=== PATIENT | male | born 1975 | race African-American/Black ===

== ENCOUNTER 2017-04-15 18:17 | Inpatient (IN) | payer OTHER ==
[~2017-04-15] VITALS: Ht 177.8 cm; Wt 102.5 kg
--- NOTE | ~2017-04-15 | HP ---
History And Physical [id number] [place]. [address] NAME: DORIAN ROMERO : 71 STATUS : ADM IN [facility]#: [id number] AGE: 41 ADM/REG DATE : 04/15/17 MR#: [id number] REPORT SERV DATE: 04/16/17 DICTATED BY: GISELL GRIGSBY DATE: 04/15/17 REPORT STATUS : Draft TRANSCRIBED BY: MODUmer DATE: 04/15/17 DATE OF ADMISSION: 04/15/2017 The patient has no primary care physician. CHIEF COMPLAINT: Abdominal pain. HISTORY OF PRESENT ILLNESS: A 41-year-old black male, comes in complaining of 1-day history of severe abdominal pain. Abdominal pain is mostly mid epigastric, associated with nausea and vomiting. The patient has not seen an MD for many years, but suspects he has hypertension. He drinks 1-1/[address] in our emergency room revealed acute pancreatitis. PAST MEDICAL HISTORY: None documented. PAST SURGICAL HISTORY: None. SOCIAL HISTORY: Smokes three to four cigars daily. Works as a [employer]. Drinks 1- 1/2 pints of alcohol daily. Denies illicit drug use. ALLERGIES: HAS NO KNOWN DRUG ALLERGIES. MEDICATIONS: None. REVIEW OF SYSTEMS: CONSTITUTIONAL: No fever, sweats, or rigors. EYES: No blurred or double, vision loss, or glaucoma. HEENT: No headache, hearing loss, or tinnitus. CARDIOVASCULAR: No chest pain, palpitations, or syncope. RESPIRATORY: No cough, wheezing, or pleuritic pain. GASTROINTESTINAL: He has had nausea, vomiting. No hematemesis. He has had abdominal pain. No melena, hematochezia, diarrhea, or constipation. MUSCULOSKELETAL: No arthralgia, arthritis. INTEGUMENT: No rash or suspicious skin lesions. NEUROLOGIC: No memory loss, gait disturbance, or weakness. HEMATOLOGIC: No known anemia, iron deficiency, or B12 deficiency. PSYCHIATRIC: No depression, bipolar, or anxiety. : No dysuria, hematuria, or nephrolithiasis. ENDOCRINE: No known diabetes, thyroid disease, or increased cholesterol. PHYSICAL EXAMINATION: VITAL SIGNS: Blood pressure is 200/100, pulse is 118, respirations 16, temp 97.9, and O2 saturation is 98% on room air. CONSTITUTIONAL: Alert and appropriate. PSYCHIATRIC: Oriented x3. Memory intact. Affect appropriate. HEENT: Atraumatic, normocephalic. Oral palate without lesion. History And Physical [address] [address] NAME: DORIAN ROMERO : 71 STATUS : ADM IN PAT#: [id number] AGE: 41 ADM/REG DATE : 04/15/17 MR#: [id number] REPORT SERV DATE: 04/16/17 DICTATED BY: GISELL GRIGSBY DATE: 04/15/17 REPORT STATUS : Draft TRANSCRIBED BY: BAILEE DATE: 04/15/17 EYES: Pupils reactive, anicteric. Conjunctivae clear. NECK: No adenopathy. Supple. No thyromegaly or masses. RESPIRATORY: Clear to percussion and auscultation. No chest wall tenderness. CARDIOVASCULAR: Tachycardic, but regular. No audible murmurs. No carotid or femoral bruits. Distal pulse intact. ABDOMEN: Moderately distended, moderate diffuse, tenderness to palpation, worse in the mid epigastric region. Bowel sounds present. He does have some guarding. SKIN: No rash. No suspicious lesions. NEUROLOGIC: The patient moves all four extremities. Cranial nerves 2 through 12 intact. Deep tendon reflexes are symmetric. LYMPHATIC: No adenopathy in the neck, axilla, or femoral region. MUSCULOSKELETAL: Range of motion intact in upper and lower extremities. DATA: CT scan showed evidence of acute pancreatitis. There is no necrosis. He also has CBC. Sodium 133, potassium 3.8, BUN 12, creatinine 1.22, total bilirubin 1.5, glucose 175, AST 89, lipase 655, troponin 0.06. CBC: White blood cell count 17.8, hemoglobin 16.6, and platelets 239. IMPRESSION/PLAN: 1. Acute pancreatitis. We will give patient IV fluids and pain control. We will hold off on IV antibiotics. His white blood cell count may be elevated secondary to dehydration. 2. Hypertensive urgency, could be secondary to pain, but we will use Catapres patch and nitroglycerin patch for now as the patient cannot tolerate p.o. very well. 3. Mildly elevated troponin likely secondary to hypertensive urgency, do not plan to repeat this. 4. Morbid obesity. 5. Alcohol abuse. We will watch for signs of withdrawal. 6. Morbid obesity. NGM/MODL Gisell Grigsby MD / [id number] CC: Michael Valdes MD
--- NOTE | ~2017-04-15 | DS ---
Discharge Summary [facility] [address] [place]. [address] NAME: DORIAN ROMERO : 71 STATUS : DIS IN PAT#: [id number] AGE: 41 ADM/REG DATE : 04/15/17 MR#: [id number] REPORT SERV DATE: 04/17/17 DICTATED BY: MICHAEL ALBERTO DATE: 04/17/17 REPORT STATUS : Draft TRANSCRIBED BY: MODUmer DATE: 04/17/17 ADMISSION DATE: 04/15/2017 DISCHARGE DATE: 04/17/2017 DISCHARGE DIAGNOSES: 1. Acute alcoholic pancreatitis. 2. Alcohol abuse. 3. Tobacco abuse. 4. Hypertension. 5. Tachycardia. PROCEDURES: None. CONSULTS: None. HOSPITAL COURSE: This is a 41-year-old gentleman who was admitted to the hospital with initial complaint of acute pancreatitis. For details, please refer to excellent H and P dictated by Dr. Gisell Lacey. In summary, the patient was admitted and was given supportive care with IV fluid resuscitation as well as analgesia and nausea control. By the second day of the hospital stay, the patient's lipase has actually normalized, but the patient was still complaining of significant epigastric abdominal discomfort. The patient was also unable to tolerate p.o. The patient was monitored another day, and by the third day of the hospital stay, the patient was able to take in p.o. intake. Of note, the patient was still noted to be slightly tachycardic and hypertensive, and thus, he was started on Lopressor. Also, the patient was given extensive counseling regarding alcohol and tobacco cessation. The patient is now being discharged home with close outpatient followup plans. DISPOSITION: Home. DISCHARGE MEDICATIONS: 1. Percocet 5/325 one tablet p.o. q.6 hours p.r.n., 15 tablets given. 2. Zofran 4 mg to 8 mg p.o. q.6 hours p.r.n. 3. Lopressor 50 mg p.o. b.i.d. FOLLOWUP: Please follow up with PCP in the next one to two weeks. Total of 25 minutes spent in coordinating this patient's discharge today. LUBNA/BAILEE Michael Alberto MD / [id number] Discharge Summary [place] [address] [place] [address] NAME: DORIAN ROMERO : 71 STATUS : DIS IN PAT#: [id number] AGE: 41 ADM/REG DATE : 04/15/17 MR#: [id number] REPORT SERV DATE: 04/17/17 DICTATED BY: MICHAEL ALBERTO DATE: 04/17/17 REPORT STATUS : Draft TRANSCRIBED BY: MODL DATE: 04/17/17 CC: Michael Alberto MD
[2017-04-15 21:01] LABS: BASOPHILS 0.1 %; BASOPHILS ABSOLUTE 0.02 10/3/uL (0.0-0.16); EOSINOPHILS 0 %; ER CBC TAT 0 Hrs 05 Mins; HEMATOCRIT 47.5 % (40.0-51.0); HEMOGLOBIN 16.6 g/dL (13.6-17.8); IMMATURE GRANULOCYTES 0.4 %; IMMATURE GRANULOCYTES ABSOLUTE 0.08 10/3/uL (0.0-0.11); LYMPHOCYTES 3.7 %; LYMPHOCYTES ABSOLUTE 0.66 10/3/uL (0.67-4.30); MANUAL DIFF NO %; MEAN CORPUS HGB CONC 34.9 g/dL (32.0-36.0); MEAN CORPUSCULAR HEMOGLOB 30.3 pg (26.0-34.0); MEAN CORPUSCULAR VOLUME 86.7 fL (80-100); MONOCYTES 6.1 %; MONOCYTES ABSOLUTE 1.08 10/3/uL (0.21-1.20); NEUTROPHILS 89.7 %; PLATELET COUNT 239 10/3/uL (150-400); RBC DISTRIBUTION WIDTH 13.7 % (12.0-16.0); RED CELL COUNT 5.48 10/6/uL (4.7-6.1); WHITE BLOOD CELLS 17.8 10/3/uL (4.5-10.5)
[2017-04-15 21:21] LABS: A/G RATIO 0.9 (0.7-1.9); ALBUMIN 3.7 G/DL (3.5-5.0); ALKALINE PHOSPHATASE 70 U/L (45-117); BUN (BLOOD UREA NITROGEN) 12 MG/DL (6-23); CALCIUM, SERUM 9.2 MG/DL (8.5-10.4); CHLORIDE, SERUM 95 MMOL/L (96-112); CO2 (CARBON DIOXIDE) 23 MMOL/L (24-34); CREATININE 1.22 MG/DL (0.70-1.30); GFR AFRICAN AMERICAN 84 ML/MIN (>=60); GFR NON AFRICAN AMERICAN 72 ML/MIN (>=60); GLOBULIN 3.9 G/DL (2.5-4.1); GLUCOSE, SERUM 175 MG/DL (60-99); SODIUM, SERUM 133 MMOL/L (135-148); TOTAL BILIRUBIN 1.5 MG/DL (0-1.2); TOTAL PROTEIN 7.6 G/DL (6.0-8.5)
[2017-04-15 21:22] LABS: POTASSIUM, SERUM 3.8 MMOL/L (3.5-5.3)
[2017-04-15 21:23] LABS: SGOT(AST) 89 U/L (5-40); SGPT(ALT) 52 U/L (5-65)
[2017-04-15 22:17] LABS: TROPONIN I 0.06 NG/ML (<0.05)
[2017-04-16 00:59] LABS: ALCOHOL < 10 MG/DL (0)
[2017-04-16 03:23] LABS: ASCORBIC ACID (UR NOT ORDER) NEG (NEG); BILIRUBIN, URINE SMALL (NEG); KETONE, URINE TRACE MG/DL (NEG); LEUKOCYTE ESTERASE(NOT OR NEG (NEG); WBC (NOT ORDERED) (RFLEX) 1 (0-5)
[2017-04-16 03:40] LABS: AMPHETAMINES (NOT ORD) NEG (NEG); BARBITURATES (NOT ORDERED NEG (NEG); BENZODIAZEPINES (NOT ORD) NEG (NEG); CANNABINOIDS (THC) NEG (NEG); COCAINE (NOT ORDERED) NEG (NEG); OPIATES POS (NEG); PHENCYCLIDINE(PCP) NEG (NEG); TRICYCLICS NEG (NEG)
[2017-04-16 05:16] LABS: BASOPHILS 0.1 %; BASOPHILS ABSOLUTE 0.01 10/3/uL (0.0-0.16); EOSINOPHILS 0 %; HEMATOCRIT 45.1 % (40.0-51.0); HEMOGLOBIN 15.7 g/dL (13.6-17.8); IMMATURE GRANULOCYTES 0.3 %; IMMATURE GRANULOCYTES ABSOLUTE 0.06 10/3/uL (0.0-0.11); LYMPHOCYTES 3.6 %; LYMPHOCYTES ABSOLUTE 0.64 10/3/uL (0.67-4.30); MANUAL DIFF NO %; MEAN CORPUS HGB CONC 34.8 g/dL (32.0-36.0); MEAN CORPUSCULAR VOLUME 86.2 fL (80-100); MEAN PLATELET VOLUME 10.4 fL (9.2-13.0); MONOCYTES 4.8 %; MONOCYTES ABSOLUTE 0.84 10/3/uL (0.21-1.20); NEUTROPHILS 91.2 %; NEUTROPHILS ABSOLUTE 16.06 10/3/uL (2.02-8.40); NUCLEATED RED BLOOD CELLS 0.6 /100WBC (0-0); PLATELET COUNT 223 10/3/uL (150-400); RBC DISTRIBUTION WIDTH 14.1 % (12.0-16.0); RED CELL COUNT 5.23 10/6/uL (4.7-6.1); WHITE BLOOD CELLS 17.6 10/3/uL (4.5-10.5)
[2017-04-16 05:19] LABS: A/G RATIO 0.9 (0.7-1.9); ALBUMIN 3.2 G/DL (3.5-5.0); ALKALINE PHOSPHATASE 64 U/L (45-117); BUN (BLOOD UREA NITROGEN) 11 MG/DL (6-23); CALCIUM, SERUM 8.7 MG/DL (8.5-10.4); CHLORIDE, SERUM 100 MMOL/L (96-112); CO2 (CARBON DIOXIDE) 22 MMOL/L (24-34); CREATININE 1.11 MG/DL (0.70-1.30); GFR AFRICAN AMERICAN 94 ML/MIN (>=60); GFR NON AFRICAN AMERICAN 81 ML/MIN (>=60); GLOBULIN 3.7 G/DL (2.5-4.1); GLUCOSE, SERUM 156 MG/DL (60-99); POTASSIUM, SERUM 3.9 MMOL/L (3.5-5.3); SGOT(AST) 56 U/L (5-40); SGPT(ALT) 38 U/L (5-65); SODIUM, SERUM 134 MMOL/L (135-148); TOTAL BILIRUBIN 1.6 MG/DL (0-1.2); TOTAL PROTEIN 6.9 G/DL (6.0-8.5)
[2017-04-16 05:20] LABS: ACETAMINOPHEN LEVEL (TYLENOL) < 2.0 MCG/ML (10.0-20.0); ALCOHOL < 10 MG/DL (0); SALICYLATE < 1.7 MG/DL (-)
[2017-04-16 05:27] LABS: CHOL/HDL RATIO(NOT ORDER) 9.2 (0-5)
[2017-04-17] MEDS ORDERED: PCET PO (11:22)
[2017-04-17] MEDS ORDERED: LOP50 PO (11:23)
[2017-04-17] MEDS ORDERED: ZOFRAN4 PO (11:24)
== END 2017-04-17 12:22 | disposition home or self-care (01) | DRG 440 ==
LOC: ER 18:17 → 6NO 23:33
PROVIDERS: Hospitalist; Internal Medicine
DX: K85.20 Alcohol induced acute pancreatitis without necrosis or infection (principal); E66.01 Morbid (severe) obesity due to excess calories; I10 Essential (primary) hypertension; I16.0 Hypertensive urgency; F10.10 Alcohol abuse, uncomplicated; F17.210 Nicotine dependence, cigarettes, uncomplicated; R00.0 Tachycardia, unspecified; Z68.32 Body mass index [BMI] 32.0-32.9, adult
CPT/HCPCS: 74176; 80053; 80061; 80305; 80307; 81001; 82962; 83036; 83690; 83735; 84484; 85025; 93005; 94640; 96374; 99285; A9270-GY; C9113; G0480; J0360; J1170; J2405; J3411